=== PATIENT | female | born 1995 | race Caucasian/White ===

== ENCOUNTER 2017-01-19 11:21 | Emergency (ER) | payer MEDICAID, OTHER ==
[~2017-01-19] VITALS: Ht 157.5 cm; Wt 52.2 kg
[~2017-01-19 11:21] MED LIST: MESA0.37 PO; PRED10TA PO; PRED5TAB PO
[2017-01-19 11:35] VITALS: BP_SYST 131
== END 2017-01-19 12:20 | disposition left against medical advice (07) ==
LOC: SED 11:21
DX: Z53.21 Procedure and treatment not carried out due to patient leaving prior to being seen by health care provider (principal); R21 Rash and other nonspecific skin eruption

== ENCOUNTER 2017-04-08 11:33 | Emergency (ER) | payer MEDICAID ==
[~2017-04-08] VITALS: Ht 157.5 cm; Wt 52.6 kg
[2017-04-08 11:39] VITALS: BP_SYST 138
[2017-04-08 12:33] LABS: BILIRUBIN,URINE NEGATIVE (NEGATIVE); BLOOD, URINE 3+ (NEGATIVE); CLARITY/URINE HAZY (CLEAR); COLOR,URINE RED (YELLOW); GLUCOSE,URINE NEGATIVE (NEGATIVE); KETONES,URINE TRACE (NEGATIVE); LEUKOCYTE ESTERASE ,URINE 2+ (NEGATIVE); NITRITE, URINE POSITIVE (NEGATIVE); PH,URINE 7.5 (5.0-8.0); PROTEIN URINE 3+ (NEGATIVE)
[2017-04-08 12:50] LABS: RBC,URINE >100 /HPF (0-3)
[2017-04-08 12:51] LABS: BACTERIA,URINE MANY /HPF (None Seen); MUCUS,URINE 1+ /LPF (None Seen)
[2017-04-08] MEDS ORDERED: PHENAZOPYRIDINE HCL 100 MG TABLET PO ONE (14:00)
[2017-04-08] MEDS ORDERED: KETOROLAC TROMETHAMINE 60 MG/2 ML VIAL IM ONE (14:00)
[2017-04-08] MEDS ORDERED: NITROFURANTOIN MONOHYD/M-CRYST 100 MG CAPSULE PO ONE (14:00)
[2017-04-08 14:40] VITALS: BP_SYST 138
== END 2017-04-08 14:40 | disposition home or self-care (01) ==
LOC: SED 11:33
DX: N39.0 Urinary tract infection, site not specified (principal); R03.0 Elevated blood-pressure reading, without diagnosis of hypertension
CPT/HCPCS: 81000; 81025; 87086; 99284; J1885

== ENCOUNTER 2019-02-27 14:25 | Emergency (ER) | payer MEDICAID ==
[~2019-02-27] VITALS: Ht 157.5 cm; Wt 51.7 kg
[2019-02-27 14:45] VITALS: BP_SYST 159
--- NOTE | 2019-02-27 15:10 | NUR ---
Patient to ER bed 07 to gown for evaluation. Side rails up.
--- NOTE | 2019-02-27 15:17 | NUR ---
Patient arrived in the ED accompanied by her mother c/o lower abdominal pain, cramping, nausea, vomiting, bloating and chills since last night - Not taking any pain meds. Patient is alert and oriented x 4, respirations even and unlabored, VS WNL, Pain severity 8/10, LBM 02/27/19, LMP 02/13/2019. Patient denied any respiratory distress at this time. Speaking in full sentences, mother at bedside. Instructed to notify ED staff if symptoms worsen while waiting to be seen by the physician.
--- NOTE | 2019-02-27 15:32 | NUR ---
ER Dr. Dominguez at bedside examining patient.
[2019-02-27] MEDS ORDERED: MORPHINE 2 MG/ML INJ. SYRINGE IVP ONE ×2 (16:00→18:15)
[2019-02-27] MEDS ORDERED: ONDANSETRON HCL 4 MG/2 ML VIAL IVP ONE (16:00)
--- NOTE | 2019-02-27 16:10 | NUR ---
# 22 gauge angiocath placed to LFA per patient's request. Use of asceptic technique. Opsite placed over site. Blood return noted. Blood for lab drawn from site. Flushed with 10 cc of normal saline. No evidence of infiltration noted. Patient tolerated well.
--- NOTE | 2019-02-27 16:18 | NUR ---
Administered Ondansetron 4mg IVP and Morphine 2mg IVP as ordered by Dr. Domniguez using existing Peripheral IV line. Flushed with NS before, in between and after each medications. Patient tolerated the medication well.
--- NOTE | 2019-02-27 16:25 | NUR ---
X-ray tech at bedside.
--- NOTE | 2019-02-27 16:37 | NUR ---
Patient taken to CT via gurney, in stable condition.
[2019-02-27] MEDS ORDERED: NACL 0.9% 1,000 ML IV ONE (16:45)
--- NOTE | 2019-02-27 16:45 | NUR ---
Patient's taken back in the ED in stable condition.
[2019-02-27 16:56] LABS: BASOPHILS # (AUTO) 0.1 K/uL (0.0-0.2); BASOPHILS % (AUTO) 0.5 % (0.0-2.0); EOSINOPHILS # (AUTO) 0.1 K/uL (0.0-0.4); EOSINOPHILS % (AUTO) 1.2 % (0.0-4.0); HEMATOCRIT 40.2 % (36-48); HEMOGLOBIN 13.6 g/dL (12.0-16.0); LYMPHOCYTES # (AUTO) 0.8 K/uL (1.0-5.5); LYMPHOCYTES % (AUTO) 7.5 % (20.5-51.5); MEAN CORPUSCULAR HEMOGLOBIN 29 pg (27-31); MEAN CORPUSCULAR HGB CONC 34 % (32-36); MEAN CORPUSCULAR VOLUME 85 fL (79.0-98.0); MONOCYTES # (AUTO) 0.9 K/uL (0.0-1.0); MONOCYTES % (AUTO) 8.1 % (1.7-9.3); NEUTROPHILS # (AUTO) 8.9 K/uL (1.8-7.7); NEUTROPHILS % (AUTO) 82.7 % (40.0-70.0); PLATELET COUNT (AUTO) 266 K/uL (130-430); RED BLOOD CELL COUNT(AUTO) 4.72 MIL/uL (4.2-6.2); RED CELL DISTRIBUTION WIDTH 14.8 % (9.0-15.0); WHITE BLOOD COUNT (AUTO) 10.8 K/uL (4.8-10.8)
[2019-02-27 17:00] LABS: CREATININE 0.64 mg/dL (0.55-1.30); POTASSIUM 3.5 mmol/L (3.5-5.1)
[2019-02-27 17:01] LABS: BILIRUBIN,URINE NEGATIVE (NEGATIVE); BLOOD, URINE NEGATIVE (NEGATIVE); COLOR,URINE YELLOW (YELLOW); GLUCOSE,URINE NEGATIVE (NEGATIVE); KETONES,URINE 1+ (NEGATIVE); LEUKOCYTE ESTERASE ,URINE NEGATIVE (NEGATIVE); NITRITE, URINE NEGATIVE (NEGATIVE); PH,URINE 5.5 (5.0-8.0); PROTEIN URINE NEGATIVE (NEGATIVE); UROBILINOGEN,URINE 0.2 (0.2-1.0)
[2019-02-27 17:05] LABS: CLARITY/URINE HAZY (CLEAR)
[2019-02-27 17:06] LABS: ALBUMIN 3.9 g/dL (3.4-4.8); INR 1.1 (0.8-1.2); PROTHROMBIN TIME 11.1 SECS (9.5-12.5); TOTAL BILIRUBIN 0.5 mg/dL (0.0-1.0)
[2019-02-27 17:13] LABS: BACTERIA,URINE FEW /HPF (None Seen); RBC,URINE 0-3 /HPF (0-3)
[2019-02-27 17:14] LABS: MUCUS,URINE 3+ /LPF (None Seen)
[2019-02-27] MEDS ORDERED: LEVOFLOXACIN 500 MG/D5W 100 ML IV ONE (18:15)
--- NOTE | 2019-02-27 18:40 | NUR ---
Administered Levaquin via IV as ordered by Dr. Dominguez. Patient tolerated the medication well.
--- NOTE | 2019-02-27 19:08 | NUR ---
Patient declined to wait for the Morphine IVP. Notified dr. Dominguez.
[2019-02-27 19:10] VITALS: BP_SYST 159
--- NOTE | 2019-02-27 19:10 | NUR ---
Patient given written and verbal discharge instructions and verbalizes understanding. ER MD discussed with patient the results and treatment provided. Patient in stable condition. ID arm band removed. IV catheter removed intact and dressing applied, no active bleeding. Rx of Cipro, lactulose, norco given. Patient educated on pain management and to follow up with PMD. Pain Scale 0/10. Opportunity for questions provided and answered. Medication side effect fact sheet provided.
== END 2019-02-27 19:10 | disposition home or self-care (01) ==
LOC: SED 14:25
DX: R10.30 Lower abdominal pain, unspecified (principal); R11.2 Nausea with vomiting, unspecified; Z79.899 Other long term (current) drug therapy
CPT/HCPCS: 36415; 71045; 74018; 74176; 80053; 81000; 83605; 83690; 84484; 85025; 85610; 85730; 87040; 87086; 93005; 96361; 96365; 96375; 99284; J1956; J2270; J2405; J7030